=== PATIENT | male | born 2000 | race Hispanic/Latino ===

== ENCOUNTER 2019-06-01 13:40 | Emergency (ER) | payer SELFPAY ==
--- NOTE | 2019-06-01 13:49 | Event Note ---
ED Screening Note ED Screening Note: [facility]re picked up today from [facility]. Mother discovered altered mental status. He does not recognize mother. Tachycardia noted on vital signs This initial assessment/diagnostic orders/clinical plan/treatment(s) is/are subject to change based on patients health status, clinical progression and re-assessment by fellow clinical providers in the ED. Further treatment and workup at subsequent clinical providers discretion. Patient/guardian urged not to elope from the ED as their condition may be serious if not clinically assessed and managed. Initial orders include: EKG CT head labs
--- NOTE | 2019-06-01 14:24 | XRay Report ---
CHEST 1 VIEW INDICATION: tachycardia altered mental status. COMPARISON: None FINDINGS: Support devices: None. Heart: Within normal limits. Lungs/Pleura: No acute air space or interstitial disease. Additional findings: None. IMPRESSION: Normal PA chest Signer Name: Juan Jose Wilson Jr, MD Signed: 06/01/2019 2:20 PM Workstation Name: [id number]
[2019-06-01 14:38] LABS: Basophils % (Auto) 0.4 % (0.0-1.8); Eosinophils % (Auto) 0.5 % (0.0-4.3); Hemoglobin 16.1 gm/dl (11.8-15.2); Lymphocytes # (Auto) 2.1 K/mm3 (1.2-5.4); Lymphocytes % (Auto) 20.6 % (13.4-35.0); Mean Corpuscular HGB Conc 35 % (32-34); Mean Corpuscular Volume 91 fl (84-94); Monocytes # (Auto) 0.9 K/mm3 (0.0-0.8); Monocytes % (Auto) 8.7 % (0.0-7.3); Platelet Count 310 K/mm3 (140-440); Red Blood Count 5.08 M/mm3 (3.65-5.03); Red Cell Distribution Width 13.6 % (13.2-15.2)
[2019-06-01 14:59] LABS: Alanine Aminotransferase 43 units/L (7-56); Albumin 4.7 g/dL (3.9-5); BUN/Creatinine Ratio 13; Blood Urea Nitrogen 12 mg/dL (9-20); Hemolysis Index 2
--- NOTE | 2019-06-01 15:13 | Emergency Department Report ---
ED Altered Mental Status HPI - General Chief Complaint: Altered Mental Status Stated Complaint: CONFUSED NOT SURE WHY Time Seen by Provider: 06/01/19 14:09 Source: patient Mode of arrival: Ambulatory Limitations: No Limitations - History of Present Illness Initial Comments: Patient is a 19-year-old F [place] male who is presenting with altered mental s tatus. Patient was picked up from assisted today by his mother and said he did not be behaving properly and was brought here for evaluation. Patient states he does not remember being incarcerated. He was told that he was arrested for assault and battery on woman. He states he does not remember assaulting anyone he does not remember the woman. Patient states he does not remember being given any illicit drugs. He does use recreational marijuana but states his last use was over a week ago. Patient states he feels somewhat nervous but otherwise has no other complaints at this time. - Related Data Home Medications Medication Instructions Recorded Confirmed Last Taken No Known Home Medications [No 06/02/19 06/02/19 Unknown Reported Home Medications] Allergies Allergy/AdvReac Type Severity Reaction Status Date / Time No Known Allergies Allergy Verified 06/02/19 08:51 ED Review of Systems ROS: Stated complaint: CONFUSED NOT SURE WHY Other details as noted in HPI Comment: All other systems reviewed and negative ED Past Medical Hx - Past Medical History Previous Medical History?: No - Surgical History Past Surgical History?: No - Social History Smoking Status: Unknown if ever smoked Substance Use Type: Marijuana - Medications Home Medications: Home Medications Medication Instructions Recorded Confirmed Last Taken Type No Known Home Medications [No 06/02/19 06/02/19 Unknown History Reported Home Medications] ED Physical Exam - General Limitations: No Limitations General appearance: alert, in no apparent distress - Head Head exam: Present: atraumatic, normocephalic - Eye Eye exam: Present: normal appearance, PERRL, EOMI - ENT ENT exam: Present: mucous membranes dry - Neck Neck exam: Present: normal inspection - Respiratory Respiratory exam: Present: normal lung sounds bilaterally. Absent: respiratory distress, wheezes, rales, rhonchi - Cardiovascular Cardiovascular Exam: Present: normal rhythm, tachycardia. Absent: systolic murmur, diastolic murmur, rubs, gallop - GI/Abdominal GI/Abdominal exam: Present: soft, normal bowel sounds. Absent: distended, tenderness, guarding, rebound, rigid - Rectal Rectal exam: Present: deferred - Extremities Exam Extremities exam: Present: normal inspection - Back Exam Back exam: Present: normal inspection - Neurological Exam Neurological exam: Present: alert, oriented X3 - Psychiatric Psychiatric exam: Present: normal affect, normal mood - Skin Skin exam: Present: warm, dry, intact, normal color. Absent: rash - Level of Consciousness 1a. Level of Consciousness: alert/keenly responsive - LOC Questions 1b. LOC Questions: answers both correctly - LOC Command 1c. LOC Commands: performs tasks correctly - Best Gaze 2. Best Gaze: normal - Visual 3. Visual: no visual loss - Facial Palsy 4. Facial Palsy: normal symmetrical movement - Motor Arm 5a. Motor Arm Left: no drift 5b. Motor Arm Right: no drift - Motor Leg 6a. Motor Leg Left: no drift 6b. Motor Leg Right: no drift - Limb Ataxia 7. Limb Ataxia: absent - Sensory 8. Sensory: normal - Best Language 9. Best Language: no aphasia - Dysarthria 10. Dysarthria: normal - Extinction and Inattention 11. Extinction/Inattention: no abnormality - Scoring Total Score: 0 Stroke Severity: No Stroke Symptoms ED Course Vital Signs 06/01/19 06/01/19 06/01/19 13:48 14:30 14:40 Temperature 97.8 F Pulse Rate 122 H 77 78 Respiratory 16 16 14 Rate Blood Pressure 147/94 Blood Pressure 115/79 [Left] O2 Sat by Pulse 100 100 Oximetry 06/01/19 06/01/19 06/01/19 15:00 16:00 16:20 Temperature Pulse Rate 92 H 91 H Respiratory 17 17 13 Rate Blood Pressure 115/79 129/85 126/85 Blood Pressure [Left] O2 Sat by Pulse 100 99 100 Oximetry 06/01/19 06/01/19 06/01/19 17:00 18:00 19:00 Temperature Pulse Rate Respiratory 16 23 13 Rate Blood Pressure 129/85 122/70 130/82 Blood Pressure [Left] O2 Sat by Pulse 98 98 100 Oximetry 06/01/19 06/01/19 06/01/19 20:00 21:00 22:00 Temperature Pulse Rate Respiratory 18 17 19 Rate Blood Pressure 115/68 115/68 124/79 Blood Pressure [Left] O2 Sat by Pulse 95 96 97 Oximetry 06/01/19 06/02/19 06/02/19 23:00 00:00 01:00 Temperature Pulse Rate Respiratory 19 15 14 Rate Blood Pressure 116/65 126/74 121/66 Blood Pressure [Left] O2 Sat by Pulse 97 97 98 Oximetry 06/02/19 06/02/19 06/02/19 02:00 03:01 04:00 Temperature Pulse Rate Respiratory 13 Rate Blood Pressure 126/71 104/71 103/76 Blood Pressure [Left] O2 Sat by Pulse 97 95 98 Oximetry 06/02/19 06/02/19 06/02/19 05:00 06:00 07:00 Temperature Pulse Rate Respiratory Rate Blood Pressure 117/75 103/76 123/88 Blood Pressure [Left] O2 Sat by Pulse 100 97 97 Oximetry 06/02/19 06/02/19 06/02/19 07:15 08:00 09:00 Temperature 97.7 F Pulse Rate 69 Respiratory 18 Rate Blood Pressure 124/94 124/94 Blood Pressure 123/88 [Left] O2 Sat by Pulse 100 96 98 Oximetry 06/02/19 06/02/19 06/02/19 10:00 11:00 12:00 Temperature Pulse Rate Respiratory Rate Blood Pressure 127/80 121/83 103/59 Blood Pressure [Left] O2 Sat by Pulse 98 93 94 Oximetry 06/02/19 06/02/19 13:00 14:00 Temperature Pulse Rate Respiratory Rate Blood Pressure 100/56 106/64 Blood Pressure [Left] O2 Sat by Pulse 95 98 Oximetry - Reevaluation(s) Reevaluation #1: 06/01/19 16:07 At this time was still waiting for urinalysis from the patient. I asked the nurse to try to go in the room and get a urine from the patient. The patient states "I do not know what that is I am never been to the bathroom and I do not know what urine is". Patient will need to be straight cath and a mental health consult this is been ordered at this time. Reevaluation #2: 06/02/19 16:15 SHELLIE RAMSAY Male : 2000 MedRec# [id number] 06/02/19 09:16 - Customer Experience Manager's Note by AZALIA GARCIA Accfranklin Num: [id number] : 2000 Patient Age: 19 MENTAL HEALTH ASSESSMENT COMPLETED: Pt is a 19 year old male who was brought to the ED by his mother. Pt is presenting with thought disorder/psychosis. The pt is oriented to self only. The pt has impaired recent and remote memory. The pt appears anxious with congruent affect. Pt displays limited judgment and poor insight. Mother reports that the pt began acting bizarrely this Tuesday ("maybe he got bad weed? I don't know what's wrong.") so she called 911 to assist with getting the pt in the car to get help. The pt was very altered and attempted to get in an unknown individuals car; the pt swung at police. (The pt has no history of violence or arrest.). The pt spent to Tuesday in assisted (the pt does not recall any of these events or his time in assisted.) The mother picked the pt up from assisted yesterday, but the pt does not recognize his mother or family and appears anxious due to this. The mother brought pt to ED; pt still is unable to recall anything but name, address and birthday. Pt has no mental health treatment history and carries no mental health diagn osis. The mother reports that the pt has a history of smoking marijuana. "I do weed that's all I do; why would it all of a sudden do this to me?" Pt can not recall how much he smokes, age of first use or the last time he smoked. Pt denies any SI; "never, ever want to hurt myself." "I'm feeling confused and lost." Pt reports, "I don't know I don't think I'm a depressed or anxious person." Pt reports no thoughts/plans of harming others. "No, I don't want to hurt anyone." Pt does not recall that he was aggressive with police. Pt can recite his address but unable to recall who lives in the home. Per the mother, the pt lives at home with her and the pt's sister. 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 RECOMMENDATION: Continue 1013; mental health rug dyer will begin the referral process for inpatient stabilization. Azalia Morgan LPC Initialized on 06/02/19 09:16 - END OF NOTE - Lab Data Result diagrams: 06/01/19 14:14 06/01/19 14:14 Lab Results 06/01/19 06/01/19 06/01/19 Range/Units 13:58 14:14 14:14 WBC 10.1 (4.5-11.0) K/mm3 RBC 5.08 H (3.65-5.03) M/mm3 Hgb 16.1 H (11.8-15.2) gm/dl Hct 46.0 H (35.5-45.6) % MCV 91 (84-94) fl MCH 32 (28-32) pg MCHC 35 H (32-34) % RDW 13.6 (13.2-15.2) % Plt Count 310 (140-440) K/mm3 Lymph % (Auto) 20.6 (13.4-35.0) % Bent % (Auto) 8.7 H (0.0-7.3) % Eos % (Auto) 0.5 (0.0-4.3) % Baso % (Auto) 0.4 (0.0-1.8) % Lymph # 2.1 (1.2-5.4) K/mm3 Bent # 0.9 H (0.0-0.8) K/mm3 Eos # 0.0 (0.0-0.4) K/mm3 Baso # 0.0 (0.0-0.1) K/mm3 Seg Neutrophils % 69.8 (40.0-70.0) % Seg Neutrophils # 7.1 (1.8-7.7) K/mm3 Sodium 137 (137-145) mmol/L Potassium 4.4 (3.6-5.0) mmol/L Chloride 94.4 L (98-107) mmol/L Carbon Dioxide 28 (22-30) mmol/L Anion Gap 19 mmol/L BUN 12 (9-20) mg/dL Creatinine 0.9 (0.8-1.5) mg/dL Estimated GFR > 60 ml/min BUN/Creatinine Ratio 13 % Glucose 106 H (75-100) mg/dL POC Glucose 112 H (70-105) Calcium 10.0 (8.4-10.2) mg/dL Total Bilirubin 1.70 H (0.1-1.2) mg/dL AST 61 H (5-40) units/L ALT 43 (7-56) units/L Alkaline Phosphatase 69 (35-129) units/L Total Protein 8.1 (6.3-8.2) g/dL Albumin 4.7 (3.9-5) g/dL Albumin/Globulin Ratio 1.4 % Urine Color (Yellow) Urine Turbidity (Clear) Urine pH (5.0-7.0) Ur Specific [place] (1.003-1.030) Urine Protein (Negative) mg/dL Urine Glucose (UA) (Negative) mg/dL Urine Ketones (Negative) mg/dL Urine Blood (Negative) Urine Nitrite (Negative) Urine Bilirubin (Negative) Urine Urobilinogen (<2.0) mg/dL Ur Leukocyte Esterase (Negative) Urine WBC (Auto) (0.0-6.0) /HPF Urine RBC (Auto) (0.0-6.0) /HPF Salicylates (2.8-20.0) mg/dL Urine Opiates Screen Urine Methadone Screen Acetaminophen (10.0-30.0) ug/mL Ur Barbiturates Screen Ur Phencyclidine Scrn Ur Amphetamines Screen U Benzodiazepines Scrn Urine Cocaine Screen U Marijuana (THC) Screen Drugs of Abuse Note Plasma/Serum Alcohol (0-0.07) % 06/01/19 06/01/19 06/01/19 Range/Units 14:14 14:14 14:14 WBC (4.5-11.0) K/mm3 RBC (3.65-5.03) M/mm3 Hgb (11.8-15.2) gm/dl Hct (35.5-45.6) % MCV (84-94) fl MCH (28-32) pg MCHC (32-34) % RDW (13.2-15.2) % Plt Count (140-440) K/mm3 Lymph % (Auto) (13.4-35.0) % Bent % (Auto) (0.0-7.3) % Eos % (Auto) (0.0-4.3) % Baso % (Auto) (0.0-1.8) % Lymph # (1.2-5.4) K/mm3 Bent # (0.0-0.8) K/mm3 Eos # (0.0-0.4) K/mm3 Baso # (0.0-0.1) K/mm3 Seg Neutrophils % (40.0-70.0) % Seg Neutrophils # (1.8-7.7) K/mm3 Sodium (137-145) mmol/L Potassium (3.6-5.0) mmol/L Chloride (98-107) mmol/L Carbon Dioxide (22-30) mmol/L Anion Gap mmol/L BUN (9-20) mg/dL Creatinine (0.8-1.5) mg/dL Estimated GFR ml/min BUN/Creatinine Ratio % Glucose (75-100) mg/dL POC Glucose (70-105) Calcium (8.4-10.2) mg/dL Total Bilirubin (0.1-1.2) mg/dL AST (5-40) units/L ALT (7-56) units/L Alkaline Phosphatase (35-129) units/L Total Protein (6.3-8.2) g/dL Albumin (3.9-5) g/dL Albumin/Globulin Ratio % Urine Color (Yellow) Urine Turbidity (Clear) Urine pH (5.0-7.0) Ur Specific [place] (1.003-1.030) Urine Protein (Negative) mg/dL Urine Glucose (UA) (Negative) mg/dL Urine Ketones (Negative) mg/dL Urine Blood (Negative) Urine Nitrite (Negative) Urine Bilirubin (Negative) Urine Urobilinogen (<2.0) mg/dL Ur Leukocyte Esterase (Negative) Urine WBC (Auto) (0.0-6.0) /HPF Urine RBC (Auto) (0.0-6.0) /HPF Salicylates < 0.3 L (2.8-20.0) mg/dL Urine Opiates Screen Urine Methadone Screen Acetaminophen < 5.0 L (10.0-30.0) ug/mL Ur Barbiturates Screen Ur Phencyclidine Scrn Ur Amphetamines Screen U Benzodiazepines Scrn Urine Cocaine Screen U Marijuana (THC) Screen Drugs of Abuse Note Plasma/Serum Alcohol < 0.01 (0-0.07) % 06/01/19 06/01/19 Range/Units 16:20 16:30 WBC (4.5-11.0) K/mm3 RBC (3.65-5.03) M/mm3 Hgb (11.8-15.2) gm/dl Hct (35.5-45.6) % MCV (84-94) fl MCH (28-32) pg MCHC (32-34) % RDW (13.2-15.2) % Plt Count (140-440) K/mm3 Lymph % (Auto) (13.4-35.0) % Bent % (Auto) (0.0-7.3) % Eos % (Auto) (0.0-4.3) % Baso % (Auto) (0.0-1.8) % Lymph # (1.2-5.4) K/mm3 Bent # (0.0-0.8) K/mm3 Eos # (0.0-0.4) K/mm3 Baso # (0.0-0.1) K/mm3 Seg Neutrophils % (40.0-70.0) % Seg Neutrophils # (1.8-7.7) K/mm3 Sodium (137-145) mmol/L Potassium (3.6-5.0) mmol/L Chloride (98-107) mmol/L Carbon Dioxide (22-30) mmol/L Anion Gap mmol/L BUN (9-20) mg/dL Creatinine (0.8-1.5) mg/dL Estimated GFR ml/min BUN/Creatinine Ratio % Glucose (75-100) mg/dL POC Glucose (70-105) Calcium (8.4-10.2) mg/dL Total Bilirubin (0.1-1.2) mg/dL AST (5-40) units/L ALT (7-56) units/L Alkaline Phosphatase (35-129) units/L Total Protein (6.3-8.2) g/dL Albumin (3.9-5) g/dL Albumin/Globulin Ratio % Urine Color Yellow (Yellow) Urine Turbidity Clear (Clear) Urine pH 6.0 (5.0-7.0) Ur Specific [place] 1.018 (1.003-1.030) Urine Protein <15 mg/dl (Negative) mg/dL Urine Glucose (UA) Neg (Negative) mg/dL Urine Ketones 20 (Negative) mg/dL Urine Blood Sm (Negative) Urine Nitrite Neg (Negative) Urine Bilirubin Neg (Negative) Urine Urobilinogen 2.0 (<2.0) mg/dL Ur Leukocyte Esterase Neg (Negative) Urine WBC (Auto) 1.0 (0.0-6.0) /HPF Urine RBC (Auto) < 1.0 (0.0-6.0) /HPF Salicylates (2.8-20.0) mg/dL Urine Opiates Screen Presumptive negative Urine Methadone Screen Presumptive negative Acetaminophen (10.0-30.0) ug/mL Ur Barbiturates Screen Presumptive negative Ur Phencyclidine Scrn Presumptive negative Ur Amphetamines Screen Presumptive negative U Benzodiazepines Scrn Presumptive negative Urine Cocaine Screen Presumptive negative U Marijuana (THC) Screen Presumptive positive Drugs of Abuse Note Disclamer Plasma/Serum Alcohol (0-0.07) % Critical care attestation.: If time is entered above; I have spent that time in minutes in the direct care of this critically ill patient, excluding procedure time. ED Disposition Condition: Stable
[2019-06-01] MEDS ORDERED: SODIUM CHLORIDE 0.9% 1000 ML 1,000 ML IV ONE (15:34)
[2019-06-01 16:48] LABS: Bilirubin,Urine NEG (Negative); Blood,Urine SM (Negative); Color,Urine Yellow (Yellow); Protein,Urine <15 mg/dL mg/dL (Negative); RBC,Urine < 1.0 /HPF (0.0-6.0)
[2019-06-01 17:03] LABS: Amphetamine Screen,Urine PRESUMPTIVE NEGATIVE; Benzodiazepines Screen,Urine PRESUMPTIVE NEGATIVE; Cocaine Screen,Urine PRESUMPTIVE NEGATIVE; Methadone Screen,Urine PRESUMPTIVE NEGATIVE; Opiate Screen,Urine PRESUMPTIVE NEGATIVE
[2019-06-01 17:28] LABS: Cannabinoid Screen,Urine PRESUMPTIVE POSITIVE
[2019-06-02] MEDS: DIVALPROEX DR 250 MG TAB PO SCH ×2 (10:55→23:37)
--- NOTE | 2019-06-03 09:59 | Consultation ---
History of Present Illness - Reason for Consult Consult date: 06/03/19 Reason for consult: Psych Eval - Chief Complaint Chief complaint: I don't know - History of Present Psychiatric Illness The patient is a 19yo single male with no known psychiatric history. He presents with amnesia over the last 5 days. Psychiatry consulted to evaluate patient and recommend disposition. Patient seen by me this morning. He is alert, fully oriented (knows the date, month and year), states he is at [facility] and able to name the current president, Aura but does not know why he is in the hospital or how he got here. He does not know if he has a family or not. He denies being depressed or excessively nervous. Patient denies panic attacks, recurrent nightmares or flashbacks. Patient denies symptoms suggestive of OCD or PTSD. Patient denies hallucinations, paranoia, thought interference and no features suggestive of hypomania or sheree. She completely denies suicidal or homicidal thoughts. He admits to smoking weeds and denies abusing other substances. He denies history of head injury or seizures. Per MENTAL HEALTH ASSESSMENT: Pt is a 19 year old male who was brought to the ED by his mother. Pt is presenting with thought disorder/psychosis. The pt is oriented to self only. The pt has impaired recent and remote memory. The pt appears anxious with congruent affect. Pt displays limited judgment and poor insight. Mother reports that the pt began acting bizarrely this Tuesday ("maybe he got bad weed? I don't know what's wrong.") so she called 911 to assist with getting the pt in the car to get help. The pt was very altered and attempted to get in an unknown individuals car; the pt swung at police. (The pt has no history of violence or arrest.). The pt spent to Tuesday in halfway (the pt does not recall any of these events or his time in halfway.) The mother picked the pt up from halfway yesterday, but the pt does not recognize his mother or family and appears anxious due to this. The mother brought pt to ED; pt still is unable to recall anything but name, address and birthday. Pt has no mental health treatment history and carries no mental health diagnosis. The mother reports that the pt has a history of smoking marijuana. "I do weed that's all I do; why would it all of a sudden do this to me?" Pt can not recall how much he smokes, age of first use or the last time he smoked. Pt denies any SI; "never, ever want to hurt myself." "I'm feeling confused and lost." Pt reports, "I don't know I don't think I'm a depressed or anxious person." Pt reports no thoughts/plans of harming others. "No, I don't want to hurt anyone." Pt does not recall that he was aggressive with police. Pt can recite his address but unable to recall who lives in the home. Per the mother, the pt lives at home with her and the pt's sister. 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 PAST PSYCHIATRIC HISTORY: None Family Psychiatric History None reported or documented SOCIAL HISTORY Marital Status: single Living Arrangements: with mother Employment Status: employed ROS: Constitutional: Negative for weight loss ENT: Negative for stridor Respiratory: Negative for cough or hemoptysis All other systems reviewed and are negative MENTAL STATUS General Appearance and Behavior: age appropriate, good eye contact, cooperative with questioning and polite Cooperation: Cooperative Psychomotor Behavior: within normal limits Mood: OK Affect and affective range: Congruent with stated mood Thought Process: Fluent/Logical and Goal-directed Thought Content: Within reality Speech: Normal volume and Regular rate and rhythm Intellectual Functioning Average Suicidal Ideation: Denies SI Homicidal Ideation: Denies HI Impulse Control: intact Insight and Judgment: normal insight and judgment Memory: Severely impaired Attention: Normal Orientation: alert and oriented Diagnosis: Amnesic disorder ? cause Cannabis abuse RECOMMENDATIONS MEDICATIONS: Trial of Depakote 250mg tid Risks, benefits and alternatives of medications discussed with the patient, questions answered and consent obtained from patient. PSYCHOTHERAPY: Supportive psychotherapy provided MEDICAL: Per primary team WARP KNITTER: Yes. DISPOSITION: Acute inpatient psychiatric hospitalization when medically stable LEGAL STATUS: 1013 FOLLOW-UP: Will follow I have reviewed this treatment plan, including potential risks and benefits of medications, with the patient and/or family members and relevant hospital prov iders. Please contact with any questions and/or concerns. Medications and Allergies Allergies Allergy/AdvReac Type Severity Reaction Status Date / Time No Known Allergies Allergy Verified 06/02/19 08:51 Home Medications Medication Instructions Recorded Confirmed Last Taken Type No Known Home Medications [No 06/02/19 06/02/19 Unknown History Reported Home Medications] Active Meds: Active Medications Divalproex Sodium (Depakote Dr) 250 mg PO BID [facility] Last Admin: 06/02/19 23:37 Dose: 250 mg Documented by: Olanzapine (Zyprexa) 5 mg PO BID [facility] Last Admin: 06/02/19 23:37 Dose: 5 mg Documented by: Mental Status Exam - Vital signs Last Vital Signs Temp 97.4 F L 06/03/19 07:56 Pulse 91 H 06/03/19 07:56 Resp 18 06/03/19 07:56 BP 129/69 06/03/19 07:56 Pulse Ox 99 06/03/19 07:56 Results Result Diagrams: 06/01/19 14:14 06/01/19 14:14 All other labs normal.
[2019-06-03] MEDS: DIVALPROEX DR 250 MG TAB PO SCH ×2 (12:13→22:18)
[2019-06-04 08:09] VITALS: BP 122/72
[2019-06-04] MEDS: DIVALPROEX DR 250 MG TAB PO SCH (10:49)
== END 2019-06-04 12:32 ==
LOC: EDBD → ED 13:40
DX: R41.82 Altered mental status, unspecified (principal); R41.0 Disorientation, unspecified; F12.10 Cannabis abuse, uncomplicated
CPT/HCPCS: 36415; 71045; 80053; 80307; 81001; 82962; 85025; 93005; 93010; 99285; J7030; 80320; G0480

== ENCOUNTER 2019-06-29 04:51 | Emergency (ER) | payer SELFPAY ==
--- NOTE | 2019-06-29 05:14 | Emergency Department Report ---
<HEIKE ESCOBAR - Last Filed: 06/29/19 07:00> ED General Adult HPI - General Chief complaint: Anxiety Stated complaint: CHEST PAIN Time Seen by Provider: 06/29/19 05:09 Source: patient Mode of arrival: Ambulatory Limitations: No Limitations - History of Present Illness Initial comments: Patient is a 19-year-old male presents emergency room with complaints of chest pain and pain down the left arm that began a few hours ago. He states that he believes he is having side effects from Abilify. He states that he began taking the Abilify last week and it was prescribed by a psychiatric facility. He states that he feels restless, feels like his speech is slurred, feels like he is constantly moving, he attributes all these symptoms to the Abilify. He denies any shortness of breath, nausea, vomiting, diarrhea, fever, cough. He states that he does use marijuana and he last used it yesterday. He states that he quit drinking last week. He denies any SI or HI. Upon questioning about auditory or visual hallucinations patient responds "I cant say". He denies any allergies to medications. - Related Data Home Medications Medication Instructions Recorded Confirmed Last Taken No Known Home Medications [No 06/02/19 06/02/19 Unknown Reported Home Medications] Allergies Allergy/AdvReac Type Severity Reaction Status Date / Time No Known Allergies Allergy Verified 06/29/19 04:59 ED Review of Systems Comment: All other systems reviewed and negative ED Past Medical Hx - Surgical History Past Surgical History?: No - Social History Smoking Status: Current Every Day Smoker Substance Use Type: None, Alcohol, Marijuana - Medications Home Medications: Home Medications Medication Instructions Recorded Confirmed Last Taken Type No Known Home Medications [No 06/02/19 06/02/19 Unknown History Reported Home Medications] ED Physical Exam - General Limitations: No Limitations General appearance: alert, in no apparent distress - Head Head exam: Present: atraumatic, normocephalic - Eye Eye exam: Present: normal appearance - ENT ENT exam: Present: mucous membranes moist - Respiratory Respiratory exam: Present: normal lung sounds bilaterally. Absent: respiratory distress, wheezes, rales, rhonchi, stridor, chest wall tenderness, accessory muscle use, decreased breath sounds, prolonged expiratory - Cardiovascular Cardiovascular Exam: Present: regular rate, normal rhythm, normal heart sounds. Absent: systolic murmur, diastolic murmur, rubs, gallop - Neurological Exam Neurological exam: Present: alert, oriented X3 - Psychiatric Psychiatric exam: Present: normal affect, normal mood - Skin Skin exam: Present: warm, dry, intact ED Medical Decision Making - Lab Data Result diagrams: 06/29/19 05:24 06/29/19 05:24 Lab Results 06/29/19 06/29/19 06/29/19 Range/Units 05:24 05:24 05:24 WBC 9.4 (4.5-11.0) K/mm3 RBC 4.78 (3.65-5.03) M/mm3 Hgb 14.9 (11.8-15.2) gm/dl Hct 44.3 (35.5-45.6) % MCV 93 (84-94) fl MCH 31 (28-32) pg MCHC 34 (32-34) % RDW 13.6 (13.2-15.2) % Plt Count 294 (140-440) K/mm3 Lymph % (Auto) 15.5 (13.4-35.0) % [place] % (Auto) 9.4 H (0.0-7.3) % Eos % (Auto) 0.5 (0.0-4.3) % Baso % (Auto) 0.3 (0.0-1.8) % Lymph # 1.5 (1.2-5.4) K/mm3 [place] # 0.9 H (0.0-0.8) K/mm3 Eos # 0.0 (0.0-0.4) K/mm3 Baso # 0.0 (0.0-0.1) K/mm3 Seg Neutrophils % 74.3 H (40.0-70.0) % Seg Neutrophils # 7.0 (1.8-7.7) K/mm3 Sodium (137-145) mmol/L Potassium (3.6-5.0) mmol/L Chloride (98-107) mmol/L Carbon Dioxide (22-30) mmol/L Anion Gap mmol/L BUN (9-20) mg/dL Creatinine (0.8-1.5) mg/dL Estimated GFR ml/min BUN/Creatinine Ratio % Glucose (75-100) mg/dL Calcium (8.4-10.2) mg/dL Total Bilirubin (0.1-1.2) mg/dL AST (5-40) units/L ALT (7-56) units/L Alkaline Phosphatase (35-129) units/L Total Creatine Kinase (55-170) units/L Troponin T (0.00-0.029) ng/mL Total Protein (6.3-8.2) g/dL Albumin (3.9-5) g/dL Albumin/Globulin Ratio % Salicylates < 0.3 L (2.8-20.0) mg/dL Acetaminophen 5.4 L (10.0-30.0) ug/mL Plasma/Serum Alcohol (0-0.07) % 06/29/19 06/29/19 Range/Units 05:24 05:24 WBC (4.5-11.0) K/mm3 RBC (3.65-5.03) M/mm3 Hgb (11.8-15.2) gm/dl Hct (35.5-45.6) % MCV (84-94) fl MCH (28-32) pg MCHC (32-34) % RDW (13.2-15.2) % Plt Count (140-440) K/mm3 Lymph % (Auto) (13.4-35.0) % [place] % (Auto) (0.0-7.3) % Eos % (Auto) (0.0-4.3) % Baso % (Auto) (0.0-1.8) % Lymph # (1.2-5.4) K/mm3 [place] # (0.0-0.8) K/mm3 Eos # (0.0-0.4) K/mm3 Baso # (0.0-0.1) K/mm3 Seg Neutrophils % (40.0-70.0) % Seg Neutrophils # (1.8-7.7) K/mm3 Sodium 138 (137-145) mmol/L Potassium 4.5 (3.6-5.0) mmol/L Chloride 99.1 (98-107) mmol/L Carbon Dioxide 26 (22-30) mmol/L Anion Gap 17 mmol/L BUN 9 (9-20) mg/dL Creatinine 0.9 (0.8-1.5) mg/dL Estimated GFR > 60 ml/min BUN/Creatinine Ratio 10 % Glucose 102 H (75-100) mg/dL Calcium 10.0 (8.4-10.2) mg/dL Total Bilirubin 0.70 (0.1-1.2) mg/dL AST 21 (5-40) units/L ALT 24 (7-56) units/L Alkaline Phosphatase 68 (35-129) units/L Total Creatine Kinase 119 (55-170) units/L Troponin T < 0.010 (0.00-0.029) ng/mL Total Protein 7.6 (6.3-8.2) g/dL Albumin 4.9 (3.9-5) g/dL Albumin/Globulin Ratio 1.8 % Salicylates (2.8-20.0) mg/dL Acetaminophen (10.0-30.0) ug/mL Plasma/Serum Alcohol < 0.01 (0-0.07) % - EKG Data EKG shows normal: sinus rhythm, axis, intervals, QRS complexes Rate: normal - EKG Data 06/29/19 06:[address] elevation which suggests acute pericarditis do not clinically suspect pericarditis, he has no pleuritic CP, he has no change in his pain with leaning forward or backward no STEMI previous EKG showed diffuse ST elevation consistent with normal early repolarization - Medical Decision Making s/o TERRY Luis pending evil ED Disposition Clinical Impression: Anxiety Disposition: DC-01 TO HOME OR SELFCARE Condition: Stable Additional Instructions: Recommend to follow-up outpatient with [facility]. Referrals: PRIMARY CARE, [Primary Care Provider] - 3-5 Days [facility] [Outside] - 3-5 Days <FAREED FABIAN - Last Filed: 06/29/19 10:13> ED Review of Systems ROS: Stated complaint: CHEST PAIN Other details as noted in HPI ED Course Vital Signs 06/29/19 04:55 Temperature 98.2 F Pulse Rate 91 H Respiratory 16 Rate Blood Pressure 118/73 O2 Sat by Pulse 98 Oximetry ED Medical Decision Making - Lab Data Result diagrams: 06/29/19 05:24 06/29/19 05:24 - Medical Decision Making Spoke with mental health open [employer] quar[employer] supervisor she recommends for patient to follow-up at [facility] which is where he follows up for his mental health. Critical care attestation.: If time is entered above; I have spent that time in minutes in the direct care of this critically ill patient, excluding procedure time. ED Disposition Is pt being admited?: No Does the pt Need Aspirin: No
[2019-06-29 05:44] LABS: Basophils % (Auto) 0.3 % (0.0-1.8); Eosinophils % (Auto) 0.5 % (0.0-4.3); Hematocrit 44.3 % (35.5-45.6); Hemoglobin 14.9 gm/dl (11.8-15.2); Lymphocytes # (Auto) 1.5 K/mm3 (1.2-5.4); Lymphocytes % (Auto) 15.5 % (13.4-35.0); Mean Corpuscular HGB Conc 34 % (32-34); Mean Corpuscular Volume 93 fl (84-94); Monocytes # (Auto) 0.9 K/mm3 (0.0-0.8); Monocytes % (Auto) 9.4 % (0.0-7.3); Platelet Count 294 K/mm3 (140-440); Red Blood Count 4.78 M/mm3 (3.65-5.03); Red Cell Distribution Width 13.6 % (13.2-15.2)
[2019-06-29 06:06] LABS: Alanine Aminotransferase 24 units/L (7-56); Albumin 4.9 g/dL (3.9-5); BUN/Creatinine Ratio 10; Blood Urea Nitrogen 9 mg/dL (9-20); Hemolysis Index 44
--- NOTE | 2019-06-29 06:18 | XRay Report ---
CHEST 2 VIEWS INDICATION / CLINICAL INFORMATION: MAIN: CPX SEVERAL DAYS; PT STATES HE THINKS HE IS REACTING TO ABILIFY. COMPARISON: 06/01/2019 prior chest radiograph FINDINGS: SUPPORT DEVICES: None. HEART / MEDIASTINUM: No significant abnormality. LUNGS / PLEURA: No significant pulmonary or pleural abnormality. No pneumothorax. ADDITIONAL FINDINGS: No significant additional findings. IMPRESSION: 1. No significant abnormality. No interval change. Signer Name: Brenda Plascencia MD Signed: 06/29/2019 6:13 AM Workstation Name: [id number]
[2019-06-29 09:16] LABS: Bilirubin,Urine NEG (Negative); Blood,Urine NEG (Negative); Color,Urine Straw (Yellow); Protein,Urine <15 mg/dL mg/dL (Negative); Urobilinogen,Urine < 2.0 mg/dL (<2.0); WBC,Urine < 1.0 /HPF (0.0-6.0)
[2019-06-29 09:22] LABS: Amphetamine Screen,Urine PRESUMPTIVE NEGATIVE; Benzodiazepines Screen,Urine PRESUMPTIVE NEGATIVE; Cannabinoid Screen,Urine PRESUMPTIVE NEGATIVE; Cocaine Screen,Urine PRESUMPTIVE NEGATIVE; Methadone Screen,Urine PRESUMPTIVE NEGATIVE; Opiate Screen,Urine PRESUMPTIVE NEGATIVE
[2019-06-29 10:17] VITALS: BP 118/70
== END 2019-06-29 10:16 | disposition home or self-care (01) ==
LOC: ED 04:51
DX: F41.9 Anxiety disorder, unspecified (principal); R07.89 Other chest pain; M79.602 Pain in left arm; F17.200 Nicotine dependence, unspecified, uncomplicated; F12.10 Cannabis abuse, uncomplicated
CPT/HCPCS: 36415; 71046; 80053; 80307; 80320; 81001; 82550; 84484; 85025; 93005; G0480